=== PATIENT | male | born 1990 | race American Indian/Alaskan Native ===

== ENCOUNTER 2018-01-13 23:25 | Emergency (ER) | payer SELFPAY ==
[2018-01-13 23:39] VITALS: BP 102/65
[2018-01-13] MEDS ORDERED: TYLENOL ONE (23:43)
[2018-01-13] MEDS ORDERED: TYLENOL PO ONE (23:45)
== END 2018-01-14 06:00 | disposition left against medical advice (07) ==
LOC: ED 23:25
DX: M54.9 Dorsalgia, unspecified (principal); Z53.21 Procedure and treatment not carried out due to patient leaving prior to being seen by health care provider

== ENCOUNTER 2018-02-01 22:00 | Emergency (ER) | payer MEDICAID ==
[2018-02-02 00:01] LABS: Bilirubin,Urine NEG (Negative); Blood,Urine NEG (Negative); Color,Urine Yellow (Yellow); Mucus,Urine 1+ /HPF; Protein,Urine <15 mg/dL mg/dL (Negative)
[2018-02-02] MEDS ORDERED: FLEXERIL PO ONE (00:39)
[2018-02-02] MEDS ORDERED: TYLENOL PO ONE (00:40)
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
[2018-02-02 01:43] VITALS: BP 114/70
== END 2018-02-02 01:37 | disposition home or self-care (01) ==
LOC: ED 22:00
DX: G89.29 Other chronic pain (principal); M54.6 Pain in thoracic spine; F17.200 Nicotine dependence, unspecified, uncomplicated; Z88.8 Allergy status to other drugs, medicaments and biological substances
CPT/HCPCS: 81001; 99283

== ENCOUNTER 2018-10-13 14:00 | Emergency (ER) | payer OTHER ==
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
[2018-10-13] MEDS ORDERED: NORCO 5/325 PO ONE (16:48)
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
[2018-10-13 17:53] LABS: Basophils # (Auto) 0.1 K/mm3 (0.0-0.1); Basophils % (Auto) 0.9 % (0.0-1.8); Hematocrit 45.7 % (35.5-45.6); Hemoglobin 15.1 gm/dl (11.8-15.2); Lymphocytes # (Auto) 0.9 K/mm3 (1.2-5.4); Lymphocytes % (Auto) 9.2 % (13.4-35.0); Mean Corpuscular HGB Conc 33 % (32-34); Mean Corpuscular Volume 88 fl (84-94); Monocytes # (Auto) 0.4 K/mm3 (0.0-0.8); Monocytes % (Auto) 3.8 % (0.0-7.3); Platelet Count 270 K/mm3 (140-440); Red Blood Count 5.22 M/mm3 (3.65-5.03); Red Cell Distribution Width 14.1 % (13.2-15.2)
[2018-10-13 18:14] LABS: BUN/Creatinine Ratio 8; Blood Urea Nitrogen 9 mg/dL (9-20); Calcium 9.4 mg/dL (8.4-10.2); Hemolysis Index 6
[2018-10-13 18:43] VITALS: BP 124/72
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
== END 2018-10-13 20:00 | disposition home or self-care (01) ==
LOC: ED 14:00
DX: S93.602A Unspecified sprain of left foot, initial encounter (principal); G43.909 Migraine, unspecified, not intractable, without status migrainosus; F17.200 Nicotine dependence, unspecified, uncomplicated; M54.5 Low back pain; Z88.5 Allergy status to narcotic agent; Z88.6 Allergy status to analgesic agent; W03.XXXA Other fall on same level due to collision with another person, initial encounter; Y93.02 Activity, running; Y92.488 Other paved roadways as the place of occurrence of the external cause; Y99.8 Other external cause status
CPT/HCPCS: 36415; 72100; 80048; 82550; 85025; 99284

== ENCOUNTER 2018-12-01 15:40 | Emergency (ER) | payer SELFPAY ==
[2018-12-01 15:45] VITALS: BP 109/73
== END 2018-12-01 18:00 | disposition left against medical advice (07) ==
LOC: ED 15:40
DX: R05 Cough (principal); Z53.21 Procedure and treatment not carried out due to patient leaving prior to being seen by health care provider

== ENCOUNTER 2018-12-08 22:59 | Emergency (ER) | payer OTHER ==
[2018-12-09] MEDS ORDERED: DECADRON IM ONE (01:11)
[2018-12-09] MEDS ORDERED: REGLAN PO ONE (01:11)
[2018-12-09] MEDS ORDERED: TYLENOL PO ONE (01:11)
[2018-12-09] MEDS ORDERED: BENADRYL PO ONE (01:11)
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
[2018-12-09 02:10] VITALS: BP 97/62
== END 2018-12-09 02:09 | disposition home or self-care (01) ==
LOC: ED 22:59
DX: R51 Headache (principal); G43.909 Migraine, unspecified, not intractable, without status migrainosus
CPT/HCPCS: 99282; J1100

== ENCOUNTER 2018-12-10 03:14 | Emergency (ER) | payer OTHER ==
[2018-12-10] MEDS ORDERED: TORADOL IM ONE (07:38)
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
[2018-12-10 08:08] VITALS: BP 104/55
== END 2018-12-10 08:13 | disposition home or self-care (01) ==
LOC: ED 03:14
DX: M54.16 Radiculopathy, lumbar region (principal); M54.30 Sciatica, unspecified side
CPT/HCPCS: 96372; 99282; J1885

== ENCOUNTER 2018-12-12 17:04 | Emergency (ER) | payer OTHER ==
[2018-12-12 17:52] VITALS: BP 108/65
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
--- NOTE | 2018-12-12 18:34 | XRay Report ---
PROCEDURE: XR SPINE LUMBOSACRAL 2-3V TECHNIQUE: Frontal and lateral views lumbar spine and coned down lateral view of the lumbosacral josephine ction HISTORY: back pain COMPARISONS: X-ray lumbar spine dated October 13, 2018 FINDINGS: There is mild dextrocurvature of the lower thoracic spine with compensatory mild levocurvature of the lower lumbar spine. Bony alignment is otherwise normal. The vertebral heights and disc spaces are maintained. There is no evidence of fracture or subluxation. The paraspinous soft tissues are unremarkable. IMPRESSION: 1. Mild dextrocurvature of the lower thoracic spine with compensatory mild levocurvature of the lower lumbar spine. This is similar in appearance to the previous study dated October 13, 2018. Otherwise unremarkable study. If the patient remains symptomatic and if further imaging is required, MRI may be helpful. This document is electronically signed by Bailey Suh MD., Dec 12 2018 06:32:19 PM ET
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
[2018-12-12] MEDS ORDERED: MORPHINE IV ONE (22:21)
[2018-12-12] MEDS ORDERED: FLEXERIL PO ONE (22:21)
[2018-12-12] MEDS ORDERED: ZOFRAN IV ONE (22:21)
[2018-12-12] MEDS ORDERED: IBUPROFEN PO ONE (22:21)
[2018-12-12] MEDS ORDERED: DECADRON IV ONE (22:21)
== END 2018-12-12 23:47 | disposition home or self-care (01) ==
LOC: ED 17:04
DX: M54.41 Lumbago with sciatica, right side (principal); M41.129 Adolescent idiopathic scoliosis, site unspecified; G43.909 Migraine, unspecified, not intractable, without status migrainosus; F17.200 Nicotine dependence, unspecified, uncomplicated; Z88.6 Allergy status to analgesic agent; Z88.8 Allergy status to other drugs, medicaments and biological substances; Z79.899 Other long term (current) drug therapy
CPT/HCPCS: 72100; 96374; 96375; 99283; J1100; J2270; J2405

== ENCOUNTER 2018-12-25 02:31 | Emergency (ER) | payer SELFPAY ==
[2018-12-25 02:38] VITALS: BP 109/73
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
[2018-12-25] MEDS ORDERED: PROVENTIL IH ONE (06:53)
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
== END 2018-12-25 07:46 | disposition home or self-care (01) ==
LOC: ED 02:31
DX: J20.9 Acute bronchitis, unspecified (principal); G43.909 Migraine, unspecified, not intractable, without status migrainosus; F17.200 Nicotine dependence, unspecified, uncomplicated; Z79.899 Other long term (current) drug therapy; Z88.6 Allergy status to analgesic agent; Z88.8 Allergy status to other drugs, medicaments and biological substances
CPT/HCPCS: 71045; 93005; 93010; 94640

== ENCOUNTER 2019-01-22 14:49 | Emergency (ER) | payer SELFPAY ==
[2019-01-22 15:04] VITALS: BP 106/77
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
== END 2019-01-22 15:08 | disposition home or self-care (01) ==
LOC: ED 14:49
DX: M72.2 Plantar fascial fibromatosis (principal); F17.200 Nicotine dependence, unspecified, uncomplicated; G43.909 Migraine, unspecified, not intractable, without status migrainosus; Z88.6 Allergy status to analgesic agent

== ENCOUNTER 2019-06-10 09:28 | Emergency (ER) | payer OTHER ==
[2019-06-10 09:33] VITALS: BP 118/81
[2019-06-10] MEDS ORDERED: oxyCODONE /ACETAMINOPHEN 5-325MG TAB PO ONE (10:14)
[2019-06-10] MEDS ORDERED: PENICILLIN G BENZATHINE 1.2 MILLION UNIT/2 ML INJ IM ONE (10:14)
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
== END 2019-06-10 11:35 | disposition home or self-care (01) ==
LOC: ED 09:28
DX: K08.89 Other specified disorders of teeth and supporting structures (principal); G43.909 Migraine, unspecified, not intractable, without status migrainosus; F17.200 Nicotine dependence, unspecified, uncomplicated
CPT/HCPCS: 96372; 99282; J0561

== ENCOUNTER 2019-07-17 09:09 | Emergency (ER) | payer SELFPAY ==
[2019-07-17] MEDS ORDERED: ONDANSETRON 4 MG ODT TAB PO ONE (10:28)
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
[2019-07-17 10:44] LABS: Basophils % (Auto) 0.3 % (0.0-1.8); Eosinophils # (Auto) 0.1 K/mm3 (0.0-0.4); Eosinophils % (Auto) 1.2 % (0.0-4.3); Hematocrit 43.7 % (35.5-45.6); Hemoglobin 14.5 gm/dl (11.8-15.2); Lymphocytes % (Auto) 14.6 % (13.4-35.0); Mean Corpuscular HGB Conc 33 % (32-34); Mean Corpuscular Volume 90 fl (84-94); Monocytes # (Auto) 0.4 K/mm3 (0.0-0.8); Monocytes % (Auto) 6.4 % (0.0-7.3); Platelet Count 238 K/mm3 (140-440); Red Blood Count 4.88 M/mm3 (3.65-5.03); Red Cell Distribution Width 14.3 % (13.2-15.2)
[2019-07-17 11:08] LABS: Alanine Aminotransferase 18 units/L (7-56); Albumin 4.3 g/dL (3.9-5); BUN/Creatinine Ratio 11; Blood Urea Nitrogen 10 mg/dL (9-20); Calcium 8.9 mg/dL (8.4-10.2); Hemolysis Index 23
--- NOTE | 2019-07-17 11:08 | XRay Report ---
LEFT 1ST TOE HISTORY: Pain. COMPARISON: None. TECHNIQUE: 3 views of the left 1st were obtained. FINDINGS: Bones: No fracture or dislocation. There is suggestion of cortical erosion at the lateral aspect of the distal phalanx of the great toe on 2 views. Joint spaces: Maintained. Soft tissues: No significant abnormality. Additional findings: Mild hallux valgus deformity. IMPRESSION: 1. Erosion of the lateral cortex of the distal phalanx of the great toe suggests possible osteomyelit is. Although there are no soft tissue changes on the x-ray, there may be correlating findings on phys ical exam. Signer Name: Guillaume Denton MD Signed: 07/17/2019 11:03 AM Workstation Name: [id number]
[2019-07-17 11:29] LABS: Bilirubin,Urine NEG (Negative); Blood,Urine NEG (Negative); Color,Urine Yellow (Yellow); Protein,Urine <15 mg/dL mg/dL (Negative); Urobilinogen,Urine < 2.0 mg/dL (<2.0)
[2019-07-17 11:34] VITALS: BP 118/74
== END 2019-07-17 11:24 | disposition home or self-care (01) ==
LOC: ED 09:09
DX: S90.111A Contusion of right great toe without damage to nail, initial encounter (principal); R10.9 Unspecified abdominal pain; G43.909 Migraine, unspecified, not intractable, without status migrainosus; F17.200 Nicotine dependence, unspecified, uncomplicated; Z79.899 Other long term (current) drug therapy; Z88.8 Allergy status to other drugs, medicaments and biological substances; W22.03XA Walked into furniture, initial encounter; Y93.89 Activity, other specified; Y92.89 Other specified places as the place of occurrence of the external cause; Y99.8 Other external cause status
CPT/HCPCS: 36415; 80053; 81001; 83690; 85025; Q0162

== ENCOUNTER 2019-09-08 12:49 | Emergency (ER) | payer SELFPAY ==
[2019-09-08 12:56] VITALS: BP 134/79
== END 2019-09-08 20:40 | disposition left against medical advice (07) ==
LOC: ED 12:49
DX: M79.671 Pain in right foot (principal); Z53.21 Procedure and treatment not carried out due to patient leaving prior to being seen by health care provider